=== PATIENT | male | born 1960 | race Caucasian/White ===

== ENCOUNTER 2018-06-11 12:37 | Inpatient (IN) ==
--- NOTE | 2018-06-11 13:02 | ED ---
HPI General Chief complaint: Chest Pain Stated complaint: Cardiac Time Seen by Provider: 06/11/18 12:47 History of Present Illness HPI narrative: This is a 58-year-old male with a history of coronary artery disease, CABG, hypertension, COPD, occasional tobacco use who was sent by his primary care physician for evaluation of elevated heart rate. He reports that for 1 week he has had cough and congestion. He has been using his albuterol inhaler and nebulizer quite frequently. He reports over the past few days he has had some shortness of breath and lightheadedness. Occasional palpitations. He was seen by his primary care physician and reportedly sent here for atrial fibrillation with RVR. He denies any known history of atrial fibrillation. Per chart review he was admitted here in 2011 for paroxysmal atrial fibrillation. He also notes that he was diagnosed with a right leg DVT 3 months ago in [place] and he has been on Eliquis since then. He is denying any chest pain, fevers, chills, abdominal pain, nausea, vomiting. Related Data Home Medications Medication Instructions Recorded Confirmed albuterol sulfate 1.25 mg INHALATION Q4-6H PRN 06/11/18 06/11/18 albuterol sulfate [Ventolin HFA] 1 puff INHALATION Q4-6H PRN 06/11/18 06/11/18 atorvastatin 80 mg PO DAILY 06/11/18 06/11/18 ciprofloxacin HCl [Cipro] 500 mg PO BID 06/11/18 06/11/18 clopidogrel [Plavix] 75 mg PO DAILY 06/11/18 06/11/18 furosemide 40 mg PO DAILY 06/11/18 06/11/18 hydromorphone 8 mg PO TID 06/11/18 06/11/18 lisinopril 5 mg PO DAILY 06/11/18 06/11/18 metoprolol tartrate 25 mg PO BID 06/11/18 06/11/18 oxycodone 30 mg PO Q8HR PRN 06/11/18 06/11/18 Previous Rx's Medication Instructions Recorded apixaban [Eliquis] 5 mg PO BID #60 tab 06/11/18 aspirin 325 mg PO DAILY #30 tab 06/11/18 lisinopril 10 mg PO DAILY #30 tab 06/11/18 Allergies Allergy/AdvReac Type Severity Reaction Status Date / Time acetaminophen Allergy Severe Anaphylaxis Verified 06/11/18 12:54 protamine Allergy Severe Anaphylaxis Verified 06/11/18 12:54 Sulfa (Sulfonamide Allergy Intermediate Nausea/Vomi Verified 06/11/18 12:54 Antibiotics) ting fresh frozen plasma Allergy Severe Anaphylaxis Uncoded 06/11/18 12:54 Review of Systems ROS: all other systems reviewed are negative [facility] Medical History Medical History A-fib (Acute) CHF (congestive heart failure) (Acute) COPD (chronic obstructive pulmonary disease) (Acute) DVT (deep venous thrombosis) (Acute) Hypercholesteremia (Acute) Hypertension (Acute) Myocardial infarct (Acute) Surgical History Surgical History S/P CABG x 5 (Acute) Social History Social History Substance History: No History of Abuse Second Hand Smoke Exposure: No Smoking Status: Current every day smoker Tobacco Type: Cigarettes How Often Do You Have a Drink Containing Alcohol: Monthly or less Recent Travel in [facility] within the Last 8 Weeks: No Recent Out of Country Travel within the Last 8 Weeks: No Immunization History Tetanus Immunization: <5 Years Tetanus Immunization Year if Known: 2018 Exam Narrative Exam Narrative: GENERAL: Well-developed well-nourished male in no acute distress SKIN: Warm and dry. HEAD: Atraumatic. Normocephalic. EYES: Pupils equal and round. No scleral icterus. No injection or drainage. ENT: No nasal bleeding or discharge. Mucous membranes pink and moist. NECK: Trachea midline. No JVD. CARDIOVASCULAR: Irregular rate and rhythm. No murmur appreciated. RESPIRATORY: No accessory muscle use. Coarse breath sounds bilaterally. GASTROINTESTINAL: Abdomen soft, non-tender, nondistended. Hepatic and splenic margins not palpable. MUSCULOSKELETAL: No obvious deformities. No clubbing. No cyanosis. No edema. NEUROLOGICAL: Awake and alert. No obvious cranial nerve deficits. Motor grossly within normal limits. Normal speech. PSYCHIATRIC: Appropriate mood and affect; insight and judgment normal. Course Initial Documented Vital Signs Temperature 98 F 06/11/18 12:41 Pulse Rate 132 H 06/11/18 12:41 Respiratory Rate 20 06/11/18 12:41 Blood Pressure 112/58 L 06/11/18 12:41 Pulse Oximetry 98 06/11/18 12:41 Last Documented Vital Signs Temperature 98.6 F 06/12/18 04:00 Pulse Rate 80 06/12/18 06:00 Respiratory Rate 18 06/12/18 05:56 Blood Pressure 127/68 06/12/18 04:00 Pulse Oximetry 94 L 06/12/18 04:00 Medical Decision Making RAJAT Attestation RAJAT supervised visit: Yes Attestation: I, Dr. Griffin, have reviewed the advance practice practitioner's documentation and am in agreement, met with the patient face to face, made the diagnosis, and the medical decision making was done by me. *My assessment and Findings: [-Patient presented to emergency room for symptomatic bradycardia, was diagnosed with rapid A. fib, treated with diltiazem and admitted to medicine with diltiazem drip.] MDM Narrative Medical decision making narrative: 58-year-old male with recently diagnosed DVT , COPD, hypertension, coronary artery disease, presents with a cough for 1 week , shortness of breath and lightheadedness for a few days, sent here by his primary care physician for evaluation of elevated heart rate. He was placed on ECG monitor and pulse oximetry. Twelve-lead EKG was obtained revealing what appears to be atrial fibrillation with RVR, left bundle branch block. He does have a history of left bundle branch block. This was confirmed by previous EKG in 2012. Lab work, chest x-ray, CT pulmonary angiogram ordered. He was given a dose of diltiazem. Initially after the 20 mg bolus of diltiazem the heart rate improved to the 100 range however shortly afterwards it returned to the 120-130 range. Therefore he was started on a diltiazem drip. CTA is negative for pulmonary embolism. The patient will be admitted for further treatment. Medical Screen Exam Complete: Yes Emergency Medical Condition: Yes Differential Diagnosis Differential Diagnosis: Atrial fibrillation, COPD exacerbation, pulmonary embolism, pneumonia Lab Data Result diagrams: 06/12/18 04:28 06/12/18 04:28 Lab Results 06/11/18 06/11/18 06/11/18 Range/Units 13:20 13:20 13:20 WBC 6.5 (4.0-11.0) th/mm3 RBC 4.07 L (4.50-5.90) mil/mm3 Hgb 11.3 L (13.0-17.0) gm/dL Hct 34.0 L (39.0-51.0) % MCV 83.5 (80.0-100.0) fL MCH 27.8 (27.0-34.0) pg MCHC 33.3 (32.0-36.0) % RDW 17.8 H (11.6-17.2) % Plt Count 131 L (150-450) th/mm3 MPV 9.2 (7.0-11.0) fL Neut % (Auto) 66.1 (16.0-70.0) % Lymph % (Auto) 20.0 (9.0-44.0) % Duval % (Auto) 10.1 H (0.0-8.0) % Eos % (Auto) 3.3 (0.0-4.0) % Baso % (Auto) 0.5 (0.0-2.0) % Neut # (Auto) 4.3 (1.8-7.7) th/mm3 Lymph # (Auto) 1.3 (1.0-4.8) th/mm3 Duval # (Auto) 0.7 (0.0-0.9) th/mm3 Eos # (Auto) 0.2 (0.0-0.4) th/mm3 Baso # (Auto) 0.0 (0.0-0.2) th/mm3 WBC Differential . Differential Comment Auto diff final PT 11.5 (9.8-11.6) sec INR 1.1 Ratio APTT 26.0 (23.4-31.7) sec Sodium 138 (136-145) meq/L Potassium 3.6 (3.5-5.1) meq/L Chloride 103 (98-107) meq/L Carbon Dioxide 28.4 (21.0-32.0) meq/L Anion Gap 7 (5-15) meq/L BUN 20 H (7-18) mg/dL Creatinine 1.31 H (0.60-1.30) mg/dL Estimated GFR 56 L (>89) mL/min Random Glucose 139 H (74-106) mg/dL Calcium 7.7 L (8.5-10.1) mg/dL Magnesium 1.8 (1.5-2.5) mg/dL Total Bilirubin 0.3 (0.2-1.0) mg/dL AST 32 (15-37) U/L ALT 47 (12-78) U/L Alkaline Phosphatase 106 (45-117) U/L Total Creatine Kinase 142 (39-308) U/L CK-MB (CK-2) 3.5 (0.5-3.6) ng/mL Troponin I Less than 0.02 L (0.02-0.05) ng/mL Total Protein 7.9 (6.4-8.2) g/dL Albumin 3.0 L (3.4-5.0) g/dL 06/12/18 06/12/18 Range/Units 04:28 04:28 WBC 4.7 (4.0-11.0) th/mm3 RBC 3.92 L (4.50-5.90) mil/mm3 Hgb 10.5 L (13.0-17.0) gm/dL Hct 32.6 L (39.0-51.0) % MCV 83.2 (80.0-100.0) fL MCH 26.9 L (27.0-34.0) pg MCHC 32.3 (32.0-36.0) % RDW 17.6 H (11.6-17.2) % Plt Count 119 L (150-450) th/mm3 MPV 8.8 (7.0-11.0) fL Neut % (Auto) (16.0-70.0) % Lymph % (Auto) (9.0-44.0) % Duval % (Auto) (0.0-8.0) % Eos % (Auto) (0.0-4.0) % Baso % (Auto) (0.0-2.0) % Neut # (Auto) (1.8-7.7) th/mm3 Lymph # (Auto) (1.0-4.8) th/mm3 Duval # (Auto) (0.0-0.9) th/mm3 Eos # (Auto) (0.0-0.4) th/mm3 Baso # (Auto) (0.0-0.2) th/mm3 WBC Differential Differential Comment PT (9.8-11.6) sec INR Ratio APTT (23.4-31.7) sec Sodium 135 L (136-145) meq/L Potassium 4.0 (3.5-5.1) meq/L Chloride 101 (98-107) meq/L Carbon Dioxide 25.0 (21.0-32.0) meq/L Anion Gap 9 (5-15) meq/L BUN 25 H (7-18) mg/dL Creatinine 1.04 (0.60-1.30) mg/dL Estimated GFR 73 L (>89) mL/min Random Glucose 223 H (74-106) mg/dL Calcium 7.5 L (8.5-10.1) mg/dL Magnesium (1.5-2.5) mg/dL Total Bilirubin (0.2-1.0) mg/dL AST (15-37) U/L ALT (12-78) U/L Alkaline Phosphatase (45-117) U/L Total Creatine Kinase (39-308) U/L CK-MB (CK-2) (0.5-3.6) ng/mL Troponin I (0.02-0.05) ng/mL Total Protein (6.4-8.2) g/dL Albumin (3.4-5.0) g/dL Imaging Data Radiologist's impression: Chest CTA 06/11/18 12:57 CONCLUSION: 1. No pulmonary embolus. 2. Mosaic attenuation pattern seen in the upper lungs bilaterally secondary to either interstitial disease or surrounding air-trapping. 3. Evidence of granulomatous exposure. 4. Minimally prominent lymph nodes in the mediastinum and left axillary and left supraclavicular regions. These are nonspecific. These appear similar to a prior CT scan initial 2012. Chest X-Ray 06/11/18 12:57 CONCLUSION: Prominence of the interstitium. This is nonspecific. The patient is scheduled for CTA of the chest. Discharge Plan Discharge Disposition Patient Disposition: ED Admit(ED Internal Use Only) Discharge Condition Condition: Stable Discharge Order Discharge Orders: ED Use Only Admit Order (Routine); Ordered 06/11/18 Ordered By: Carlos Leung Discharge Details Diagnosis: Atrial fibrillation with RVR Physicians Team ED Provider: Salvador Griffin ED Midlevel Provider: Carlos Leung Primary Care Provider: Jose Elias Whatley Attending Provider: Denise Franz Other Providers: Link Silva Status ED Status: Left Department Discharge Information Discharge Date/Time: 06/11/18 19:08
--- NOTE | 2018-06-11 13:18 | XR ---
EXAM DATE: 06/11/2018 1:14 PM EST AGE/SEX: 58 years / Male INDICATIONS: Chest pain. CLINICAL DATA: This is the patient's initial encounter. Patient reports that signs and symptoms have been present for 1 day and indicates a pain score of 4/10. MEDICAL/SURGICAL HISTORY: Congestive heart failure. Hypertension. CABG. COMPARISON: [facility] – [place], CHEST SINGLE AP, 01/24/2013. . FINDINGS: The patient is status post sternotomy. The heart size is normal. There is minimal interstitial promin ence at the bases especially on the left. CONCLUSION: Prominence of the interstitium. This is nonspecific. The patient is scheduled for CTA of the chest. Electronically signed by: Tonio Lao MD 06/11/2018 1:16 PM EST
[2018-06-11 13:53] LABS: Baso % (Auto) 0.5 % (0.0-2.0); Eos # (Auto) 0.2 th/mm3 (0.0-0.4); Eos % (Auto) 3.3 % (0.0-4.0); Hemoglobin 11.3 gm/dL (13.0-17.0); Lymph # (Auto) 1.3 th/mm3 (1.0-4.8); Mean Corpuscular HGB Conc 33.3 % (32.0-36.0); Mean Corpuscular Hemoglobin 27.8 pg (27.0-34.0); Mean Corpuscular Volume 83.5 fL (80.0-100.0); Mean Platelet Volume 9.2 fL (7.0-11.0); Mono # (Auto) 0.7 th/mm3 (0.0-0.9); Mono % (Auto) 10.1 % (0.0-8.0); Neut # (Auto) 4.3 th/mm3 (1.8-7.7); Neut % (Auto) 66.1 % (16.0-70.0); Platelet Count 131 th/mm3 (150-450); Red Blood Count 4.07 mil/mm3 (4.50-5.90); Red Cell Distribution Width 17.8 % (11.6-17.2); White Blood Count 6.5 th/mm3 (4.0-11.0)
[2018-06-11] MEDS ORDERED: Sodium Chlor 0.9% Inj 500 ML IV.SIG SCH (14:00)
[2018-06-11 14:09] LABS: INR 1.1 Ratio; Prothrombin Time 11.5 sec (9.8-11.6)
[2018-06-11 14:13] LABS: Alanine Aminotransferase 47 U/L (12-78); Anion Gap 7 meq/L (5-15); Aspartate Aminotransferase 32 U/L (15-37); Blood Urea Nitrogen 20 mg/dL (7-18); Calcium 7.7 mg/dL (8.5-10.1); Carbon Dioxide 28.4 meq/L (21.0-32.0); Chloride 103 meq/L (98-107); Glomerular Filtration Rate 56 mL/min (>89); Glucose,Random 139 mg/dL (74-106); Magnesium 1.8 mg/dL (1.5-2.5); Potassium 3.6 meq/L (3.5-5.1); Sodium 138 meq/L (136-145)
[2018-06-11 14:17] LABS: Alkaline Phosphatase 106 U/L (45-117); Creatine Kinase 142 U/L (39-308); Total Protein 7.9 g/dL (6.4-8.2)
[2018-06-11 14:29] LABS: Creatine Kinase MB 3.5 ng/mL (0.5-3.6)
[2018-06-11] MEDS: dilTIAZem Inj 125 MG in Sodium Chlor 0.9% Inj 100 ML IV.CONT PRN (15:42)
--- NOTE | 2018-06-11 15:42 | CT ---
EXAM DATE: 06/11/2018 3:28 PM EST AGE/SEX: 58 years / Male INDICATIONS: Shortness of breath CLINICAL DATA: This is the patient's initial encounter. Patient reports that signs and symptoms have been present for 1 day and indicates a pain score of 7/10. MEDICAL/SURGICAL HISTORY: Chronic obstructive pulmonary disease. Deep venous thrombosis. Cardiova scular disease. Hypertension a-fib CABG. RADIATION DOSE: 17.09 CTDI (mGy) COMPARISON: [facility] – [place], CT PULMONARY ANGIOGRAM, 01/24/2013. . TECHNIQUE: Volumetric scanning was performed using a multi-row detector CT scanner during bolus infu eugenio of 72 ml Omnipaque 350 (iohexol) nonionic water-soluble contrast as a single exam dose. The roro a was post processed with a variety of visualization algorithms including full volume maximum intensi ty projection and sliding thin slab reformation. Using automated exposure control and adjustment of t he mA and/or kV according to patient size, radiation dose was kept as low as reasonably achievable to obtain optimal diagnostic quality images. DICOM format image data is available electronically for r eview and comparison. FINDINGS: Pulmonary Arteries: No filling defects are seen in the pulmonary arteries out to the subsegmental ve ssels. The left and right pulmonary arteries are normal in diameter. Lung: There are patchy areas of mosaic attenuation seen in the upper lungs bilaterally. This is like ly secondary to underlying interstitial disease or surrounding air trapping. There are calcified gran ulomas seen in the lateral right upper lung. There are some minimal linear density seen in the manager social work ior left lower lobe and the superior segment likely related to atelectasis or scarring. Effusion: None. Mediastinum: No evidence of mediastinal or hilar adenopathy. The patient is status post sternotomy. There is mildly prominent but not definitely pathologically enlarged lymph nodes seen in the precarin al, pretracheal, AP window, and subcarinal regions. These are nonspecific. Some minimally prominent l ymph nodes in the left axillary and supraclavicular region. The largest lymph node in this region geeta sures up to 1.8 cm. Other: Calcified granulomas are seen in the liver and spleen. CONCLUSION: 1. No pulmonary embolus. 2. Mosaic attenuation pattern seen in the upper lungs bilaterally secondary to either interstitial d isease or surrounding air-trapping. 3. Evidence of granulomatous exposure. 4. Minimally prominent lymph nodes in the mediastinum and left axillary and left supraclavicular reg ions. These are nonspecific. These appear similar to a prior CT scan initial 2012. Electronically signed by: Tonio Lao MD 06/11/2018 3:40 PM EST
--- NOTE | 2018-06-11 17:01 | P.HPFP ---
History of Present Illness Service: Family Medicine Inpatient Teaching Service Primary Care Physician: Jose Elias Whatley MD, R3 Chief Complaint: tachycardia History of Present Illness: This is a 58-year-old male with a history of coronary artery disease, TN, CABG and subsequent paroxysmal A-fib, hypertension, COPD, tobacco use, recent DVT on AC, who was sent by his primary care physician for evaluation of elevated heart rate. He reports that for 1 week he has had cough, congestion, runny nose, dyspnea. He has been using his albuterol inhaler and nebulizer more frequently as well as an OTC expectorant. He reports increased dyspnea, increased coughing , increased sputum production, and increased sputum purulence. He reports over the past few days he has occasional palpitations, which are gone since presenting to the ED and being treated with Diltiazem drip; he also reports improvement in his dyspnea since being treated with Diltiazem drip. Patient presented earlier today to his primary care physician for a routine 3 month check up with mild dyspnea and then was sent here for atrial fibrillation with RVR. Per chart review, he was admitted here in 2011 for paroxysmal atrial fibrillation. He also notes that he was diagnosed with a right leg DVT 3 months ago in [place] and he has been on Eliquis since then. He recently drove back from [place], [place] a couple days ago. He reports that his LE swelling and back pain are worse as a result. He is denying any chest pain, fevers, chills, night sweats, weight loss, abdominal pain, nausea, vomiting, lightheadedness, dizziness, presyncope, syncope. He says he felt warm at times over the past week. He reports some abdominal pain 2/2 coughing. Chronic pain is stable, well controlled with meds as listed. Patient's heel scorer is Dr. Gonzalez. Patient had a 5 vessel CABG performed by Dr. Jimenez 9 years ago. - Diagnosis (1) Atrial fibrillation with RVR (2) COPD exacerbation (3) CHF (congestive heart failure) (4) History of DVT (deep vein thrombosis) (5) History of coronary artery bypass graft (6) HTN (hypertension) (7) Chronic pain Inpatient Certification: I certify that the inpatient services were ordered in accordance with Medicare regulations governing the order. This includes certification that hospital inpatient services are reasonable and necessary and in the case of services not specified as inpatient-only under 42 CFR 419.22(n), that they are appropriately provided as inpatient services in accordance to with the 2-midnight benchmark under 43 CFR 412.3(e) Review of Systems Denies fever or chills No polyuria, polydipsia Denies vision changes, eye pain, hearing changes, reports + rhinorrhea, no sore throat Denies sore throat, reports + runny nose, + cough No chest pain, palpitations, shortness of breath at this time reports + abdominal pain 2/2 coughing Denies constipation, diarrhea, nausea, vomiting, black or bloody stools No dysuria, hematuria Denies muscle/joint pain, weakness, headache No rashes, itching PMFSH - History History Provided By: Patient - Medical History Medical History: Medical History (Last Updated 06/11/18 @ 14:28 by Ariadna Crespo) A-fib CHF (congestive heart failure) COPD (chronic obstructive pulmonary disease) DVT (deep venous thrombosis) Hypercholesteremia Hypertension Myocardial infarct - Surgical History Surgical History: Surgical History (Last Updated 06/11/18 @ 12:55 by Ariadna Crespo) S/P CABG x 5 - Tobacco History Second Hand Smoke Exposure: No Tobacco Use In Past 30 Days: Yes Smoking Status: Current every day smoker Tobacco Type: Cigarettes - Alcohol History How Often Do You Have a Drink Containing Alcohol: Monthly or less - Substance Use History Substance History: No History of Abuse - Travel History Recent Travel in the [place] Within the Last 8 Weeks: No Recent Travel Out of the Country Within the Last 8 Weeks: No - Immunization History Tetanus Immunization: <5 Years Tetanus Immunization Year if Known: 2018 Medications and Allergies Active Medications: Active Medications Diltiazem HCl 125 mg/ Sodium (Chloride) 125 mls @ 5 mls/hr IV.CONT TITRATE PRN ; Protocol PRN Reason: Per Protocol Last Admin: 06/11/18 15:42 Dose: 5 mg/hr, 5 mls/hr Sodium Chloride (Ns Flush) 2 ml IV.FLUSH UNSCH PRN PRN Reason: FLUSH AFTER USING IV ACCESS Allergies Allergy/AdvReac Type Severity Reaction Status Date / Time acetaminophen Allergy Severe Anaphylaxis Verified 06/11/18 12:54 protamine Allergy Severe Anaphylaxis Verified 06/11/18 12:54 Sulfa (Sulfonamide Allergy Intermediate Nausea/Vomi Verified 06/11/18 12:54 Antibiotics) ting fresh frozen plasma Allergy Severe Anaphylaxis Uncoded 06/11/18 12:54 Home Medications Medication Instructions Recorded Confirmed Type albuterol sulfate 1.25 mg INHALATION Q4-6H PRN 06/11/18 06/11/18 History albuterol sulfate [Ventolin HFA] 1 puff INHALATION Q4-6H PRN 06/11/18 06/11/18 History atorvastatin 80 mg PO DAILY 06/11/18 06/11/18 History ciprofloxacin HCl [Cipro] 500 mg PO BID 06/11/18 06/11/18 History clopidogrel [Plavix] 75 mg PO DAILY 06/11/18 06/11/18 History furosemide 40 mg PO DAILY 06/11/18 06/11/18 History hydromorphone 8 mg PO TID 06/11/18 06/11/18 History metoprolol tartrate 25 mg PO BID 06/11/18 06/11/18 History oxycodone 30 mg PO Q8HR PRN 06/11/18 06/11/18 History Exam Vital signs: Vital Signs 06/11/18 12:41 06/11/18 12:56 06/11/18 13:29 Temperature 98 F Pulse Rate 132 H 139 H 135 H Respiratory Rate 20 19 20 Blood Pressure 112/58 L 152/94 H 96/55 L Pulse Oximetry 98 98 97 06/11/18 13:55 06/11/18 13:58 06/11/18 14:10 Temperature Pulse Rate 120 H 105 H 98 H Respiratory Rate 20 18 Blood Pressure 120/55 L 113/55 L 102/50 L Pulse Oximetry 97 97 Intake & Output 06/10/18 06/11/18 06/11/18 18:59 06:59 18:59 Intake Total 500 / 500 Balance 500 / 500 Weight 103.419 kg Intake: IV 500 / 500 NS Inj 500 ML @ 1000 mls/hr IV. 500 / 500 SIG BOLUS [facility] Rx#:[id number] Narrative: GENERAL: Well-developed well-nourished male in no acute distress SKIN: Warm and dry. HEAD: Atraumatic. Normocephalic. EYES: Pupils equal and round. No scleral icterus. No injection or drainage. ENT: No nasal bleeding or discharge. Mucous membranes pink and moist. NECK: Trachea midline. No JVD. No carotid bruits. CARDIOVASCULAR: Borderline tachycardic rate and irregularly irregular rhythm. RESPIRATORY: No accessory muscle use or increased work of breathing. Decreased air movement at bilateral lung bases with bilateral bibasilar crackles. Increased air movement and less rales with auscultating up the lung galvan bilaterally. GASTROINTESTINAL: Abdomen soft, non-tender, nondistended. Hepatic and splenic margins not palpable. MUSCULOSKELETAL: +2 pitting edema to knees bilaterally. No obvious deformities. No clubbing. No cyanosis. No calf tenderness bilaterally. NEUROLOGICAL: Awake and alert. No obvious cranial nerve deficits. Motor grossly within normal limits. Normal speech. PSYCHIATRIC: Appropriate mood and affect; insight and judgment normal. Results - Labs Result diagrams: 06/12/18 04:28 06/12/18 04:28 Abnormal lab results 06/11/18 06/11/18 Range/Units 13:20 13:20 RBC 4.07 L (4.50-5.90) mil/mm3 Hgb 11.3 L (13.0-17.0) gm/dL Hct 34.0 L (39.0-51.0) % RDW 17.8 H (11.6-17.2) % Plt Count 131 L (150-450) th/mm3 [place] % (Auto) 10.1 H (0.0-8.0) % BUN 20 H (7-18) mg/dL Creatinine 1.31 H (0.60-1.30) mg/dL Estimated GFR 56 L (>89) mL/min Random Glucose 139 H (74-106) mg/dL Calcium 7.7 L (8.5-10.1) mg/dL Troponin I Less than 0.02 L (0.02-0.05) ng/mL Albumin 3.0 L (3.4-5.0) g/dL Short CBC 06/11/18 Range/Units 13:20 WBC 6.5 (4.0-11.0) th/mm3 Hgb 11.3 L (13.0-17.0) gm/dL Hct 34.0 L (39.0-51.0) % Plt Count 131 L (150-450) th/mm3 BMP 06/11/18 13:20 Sodium 138 Potassium 3.6 Chloride 103 Carbon Dioxide 28.4 BUN 20 H Creatinine 1.31 H Calcium 7.7 L Cardiac Enzymes 06/11/18 Range/Units 13:20 Total Creatine Kinase 142 (39-308) U/L CK-MB (CK-2) 3.5 (0.5-3.6) ng/mL Troponin I Less than 0.02 L (0.02-0.05) ng/mL Liver Function 06/11/18 Range/Units 13:20 Total Bilirubin 0.3 (0.2-1.0) mg/dL AST 32 (15-37) U/L ALT 47 (12-78) U/L Alkaline Phosphatase 106 (45-117) U/L Albumin 3.0 L (3.4-5.0) g/dL - Imaging Impressions Chest CTA 06/11/18 12:57 CONCLUSION: 1. No pulmonary embolus. 2. Mosaic attenuation pattern seen in the upper lungs bilaterally secondary to either interstitial disease or surrounding air-trapping. 3. Evidence of granulomatous exposure. 4. Minimally prominent lymph nodes in the mediastinum and left axillary and left supraclavicular regions. These are nonspecific. These appear similar to a prior CT scan initial 2012. Chest X-Ray 06/11/18 12:57 CONCLUSION: Prominence of the interstitium. This is nonspecific. The patient is scheduled for CTA of the chest. Caprini VTE Risk Assessment Caprini VTE Risk Assessment: Moderate/High Risk (score >= 2) Caprini Risk Assessment Model: Point Value = 1 Point Value = 2 Point Value = 3 Point Value = 5 Age 41-60 Minor surgery BMI > 25 kg/m2 Swollen legs Varicose veins or History of unexplained or recurrent spontaneous Oral contraceptives or hormone replacement Sepsis (< 1 month) Serious lung disease, including pneumonia (< 1 month) Abnormal pulmonary function Acute myocardial infarction Congestive heart failure (< 1 month) History of inflammatory bowel disease Medical patient at bed rest Age 61-74 Arthroscopic surgery Major open surgery (> 45 min) Laparoscopic surgery (> 45 min) Malignancy Confined to bed (> 72 hours) Immobilizing plaster cast Central venous access Age >= 75 History of VTE Family history of VTE Factor V Leiden Prothrombin [id number] Lupus anticoagulant Anticardiolipin antibodies Elevated serum homocysteine Heparin-induced thrombocytopenia Other congenital or acquired thrombophilia Stroke (< 1 month) Elective arthroplasty Hip, pelvis, or leg fracture Acute spinal cord injury (< 1 month) Prophylaxis Regimen: Total Risk Factor Score Risk Level Prophylaxis Regimen 0-1 Low Early ambulation 2 Moderate Order ONE of the following: *Sequential Compression Device (SCD) *Heparin 5000 units SQ BID 3-4 Higher Order ONE of the following medications: *Heparin 5000 units SQ TID *Enoxaparin/Lovenox 40 mg SQ daily (WT < 150 kg, CrCl > 30 mL/min) *Enoxaparin/Lovenox 30 mg SQ daily (WT < 150 kg, CrCl > 10-29 mL/min) *Enoxaparin/Lovenox 30 mg SQ BID (WT < 150 kg, CrCl > 30 mL/min) AND/OR *Sequential Compression Device (SCD) 5 or more Highest Order ONE of the following medications: *Heparin 5000 units SQ TID (Preferred with Epidurals) *Enoxaparin/Lovenox 40 mg SQ daily (WT < 150 kg, CrCl > 30 mL/min) *Enoxaparin/Lovenox 30 mg SQ daily (WT < 150 kg, CrCl > 10-29 mL/min) *Enoxaparin/Lovenox 30 mg SQ BID (WT < 150 kg, CrCl > 30 mL/min) AND *Sequential Compression Device (SCD) Assessment and Plan - Assessment (1) Atrial fibrillation with RVR Code(s): I48.91 - Unspecified atrial fibrillation Status: Acute Plan: Patient given a bolus of Dilt in ED, which brought rate down temporarily but then rate jumped back up. Thus, patient started on Dilt drip. -continue Dilt drip -monitor VS q4h and with cont telemetry -O2 PRN -continue home medication of metop if bp can tolerate -cardiology consult (2) COPD exacerbation Code(s): J44.1 - Chronic obstructive pulmonary disease with (acute) exacerbation Status: Acute Plan: Patient with 3/3 cardinal symptoms of COPD exacerbation. Thus, will treat with steroid and abx. -Levaquin 750 mg IV q24h -Solumedrol 60 mg IV q6h overnight, then switch to prednisone 40 mg po qd -albuterol and DuoNebs PRN -COPD educator consulted patient is a smoker -nicotine patch (3) CHF (congestive heart failure) Code(s): I50.9 - Heart failure, unspecified Status: Acute Plan: -Patient with rales and LE edema on exam. -Lasix 40mg IV bid -KCl 10 mEq po bid -monitor I&Os, daily weights (4) History of DVT (deep vein thrombosis) Code(s): Z86.718 - Personal history of other venous thrombosis and embolism Status: Acute Plan: Patient recently diagnosed with DVT now on Eliquis. -continue home medication of Eliquis 5mg po bid for DVT ppx (5) History of coronary artery bypass graft Code(s): Z95.1 - Presence of aortocoronary bypass graft Status: Acute Plan: -continue home medications of aspirin, statin, Plavix -cardiac diet (6) HTN (hypertension) Code(s): I10 - Essential (primary) hypertension Status: Acute Plan: -continue home medications of lisinopril, metoprolol, furosemide as bp tolerates (7) Chronic pain Code(s): G89.29 - Other chronic pain Status: Acute Plan: chronic back pain -continue home medications of hydromorphone 8 mg po q8h, oxycodone 30 mg po q8h - Assessment and Plan This is a 58-year-old male with a history of coronary artery disease, TN, CABG and subsequent paroxysmal A-fib, hypertension, COPD, tobacco use, recent DVT on AC, who was sent by his primary care physician for evaluation of elevated heart rate. Patient was found to be in A. fib with RVR, which required diltiazem IV drip. Patient also presents with history concerning for COPD exacerbation. Will treat with antibiotics and steroids. Patient also with history of CHF seems volume overloaded on exam. Will treat with IV diuretics. Discussed Condition With: Dr. Franz
[2018-06-11] MEDS: MethylPREDNISolone Sod Succinate Inj 40 MG/ML Vial IV.PUSH SCH ×2 (18:25→23:30)
[2018-06-11] MEDS: Metoprolol Tartrate 25 MG Tablet PO SCH (20:04)
--- NOTE | 2018-06-11 22:25 | MB ---
cc: Link Silva MD DATE: 06/11/2018 HISTORY OF PRESENT ILLNESS: Roger is a very pleasant 58-year-old gentleman with history of DVT, coronary artery disease, status post CABG x5, Afib, CHF, sent over from his primary doctor due to complaints of dyspnea, which he describes as mild. He otherwise denies any chest pain, fever, chills, cough, GI or bleeding. No orthopnea or dizziness. Per the ER note, he was actually sent over for evaluation of elevated heart rate. PAST MEDICAL HISTORY: Per history of present illness. He also has a history of CHF, COPD, hyperlipidemia, myocardial infarction. ALLERGIES: ACETAMINOPHEN, PROTAMINE, SULFA, AND FRESH FROZEN PLASMA. SOCIAL HISTORY: Smokes cigarettes every day. Rarely drinks alcohol. MEDICATIONS: 1. Albuterol. 2. Eliquis 5 mg b.i.d. 3. Aspirin 325 daily. 4. Atorvastatin 80 mg at bedtime. 5. Clopidogrel 75 mg daily. 6. Cardizem drip. 7. Furosemide 40 mg IV b.i.d. 8. Dilaudid 8 mg q.8 hours. 9. Levaquin. 10. Lisinopril 10 mg daily. 11. Methylprednisolone 60 mg IV every 6 hours. 12. Metoprolol 25 mg p.o. b.i.d. 13. Nicotine patch. 14. Potassium chloride 10 mEq b.i.d. PHYSICAL EXAMINATION: VITAL SIGNS: Initially, blood pressure was 120/55 with a pulse of 120, respiratory rate 20, saturations 97% on room air. Heart rate is low as 98. Most recent heart rate is 114 with a blood pressure 105/60. GENERAL: He is alert and oriented x3, in no acute distress. NECK: Supple. No JVD. No bruit. CARDIOVASCULAR: S1, S2. No murmurs, rubs or gallops. ABDOMEN: Soft, nontender, nondistended with positive bowel sounds. EXTREMITIES: No extremity edema. LABORATORY DATA: White count 6.5, hemoglobin 11.3, hematocrit 34.0, platelet count 131. INR 1.1. Sodium 138, potassium 3.6, chloride 103, bicarbonate 20.4, BUN 20, creatinine 1.31, AST 32, ALT 47. Troponin less than 0.02. CT of the chest, no pulmonary embolus. Mosaic attenuation pattern seen in the upper lungs bilaterally secondary to either interstitial disease or surrounding air trapping, evidence of granulomatous exposure, minimally prominent lymph nodes in the mid mediastinum, left subclavian and supraclavicular regions. These are nonspecific. These appear similar to a prior CT scan, initial 2012. Chest x-ray, prominence of the interstitial and this is nonspecific. The patient is scheduled for CT of the chest. EKG: AFib at a rate of 109 beats per minute with left bundle branch block. DIAGNOSES: 1. Atrial fibrillation with rapid ventricular response. 2. Left ventricular hypertrophy. 3. Coronary artery disease. 4. Dyspnea. 5. Chronic renal insufficiency. 6. Acute renal failure. 7. Anemia. 8. Thrombocytopenia. PLAN: The patient is nearly rate controlled with IV Cardizem. The patient presented already on Eliquis, aspirin and Plavix. I am not clear why the patient is on a full 325 mg aspirin and Plavix in addition to Eliquis. By guidelines, the patient should be on 81 mg of aspirin daily for his CABG and Eliquis for his atrial fibrillation given his CHADS-VASc score of at least 3. He also has thrombocytopenia. I am somewhat concerned about decreasing his Plavix without knowing the exact reason why he was place on it as an outpatient. I strongly advised the patient to stop smoking. We will follow trends in the heart rate, blood pressure and troponin. Unless there is a strong reason why the patient is on a full aspirin and Plavix, I would recommend that the aspirin be reduced to 81 mg a day and the Plavix discontinued and continue Eliquis, again for his CHADS-VASc score of at least 3 and atrial fibrillation. MD MÓNICA Bagley/coni , 07:12 PM , 07:22 PM
[2018-06-12 04:40] LABS: Hematocrit 32.6 % (39.0-51.0); Hemoglobin 10.5 gm/dL (13.0-17.0); Mean Corpuscular HGB Conc 32.3 % (32.0-36.0); Mean Corpuscular Hemoglobin 26.9 pg (27.0-34.0); Mean Corpuscular Volume 83.2 fL (80.0-100.0); Mean Platelet Volume 8.8 fL (7.0-11.0); Platelet Count 119 th/mm3 (150-450); Red Blood Count 3.92 mil/mm3 (4.50-5.90); Red Cell Distribution Width 17.6 % (11.6-17.2); White Blood Count 4.7 th/mm3 (4.0-11.0)
[2018-06-12 04:52] LABS: Calcium 7.5 mg/dL (8.5-10.1)
[2018-06-12] MEDS: MethylPREDNISolone Sod Succinate Inj 40 MG/ML Vial IV.PUSH SCH (05:41)
[2018-06-12] MEDS: dilTIAZem Inj 125 MG in Sodium Chlor 0.9% Inj 100 ML IV.CONT PRN (08:26)
--- NOTE | 2018-06-12 08:45 | P.PNFP ---
Results - Labs Result diagrams: 06/12/18 04:28 06/12/18 04:28 Abnormal lab results 06/11/18 06/11/18 06/12/18 Range/Units 13:20 13:20 04:28 RBC 4.07 L 3.92 L (4.50-5.90) mil/mm3 Hgb 11.3 L 10.5 L (13.0-17.0) gm/dL Hct 34.0 L 32.6 L (39.0-51.0) % MCH 26.9 L (27.0-34.0) pg RDW 17.8 H 17.6 H (11.6-17.2) % Plt Count 131 L 119 L (150-450) th/mm3 [place] % (Auto) 10.1 H (0.0-8.0) % Sodium (136-145) meq/L BUN 20 H (7-18) mg/dL Creatinine 1.31 H (0.60-1.30) mg/dL Estimated GFR 56 L (>89) mL/min Random Glucose 139 H (74-106) mg/dL Calcium 7.7 L (8.5-10.1) mg/dL Troponin I Less than 0.02 L (0.02-0.05) ng/mL Albumin 3.0 L (3.4-5.0) g/dL 06/12/18 Range/Units 04:28 RBC (4.50-5.90) mil/mm3 Hgb (13.0-17.0) gm/dL Hct (39.0-51.0) % MCH (27.0-34.0) pg RDW (11.6-17.2) % Plt Count (150-450) th/mm3 [place] % (Auto) (0.0-8.0) % Sodium 135 L (136-145) meq/L BUN 25 H (7-18) mg/dL Creatinine (0.60-1.30) mg/dL Estimated GFR 73 L (>89) mL/min Random Glucose 223 H (74-106) mg/dL Calcium 7.5 L (8.5-10.1) mg/dL Troponin I (0.02-0.05) ng/mL Albumin (3.4-5.0) g/dL Short CBC 06/11/18 06/12/18 Range/Units 13:20 04:28 WBC 6.5 4.7 (4.0-11.0) th/mm3 Hgb 11.3 L 10.5 L (13.0-17.0) gm/dL Hct 34.0 L 32.6 L (39.0-51.0) % Plt Count 131 L 119 L (150-450) th/mm3 BMP 06/11/18 06/12/18 13:20 04:28 Sodium 138 135 L Potassium 3.6 4.0 Chloride 103 101 Carbon Dioxide 28.4 25.0 BUN 20 H 25 H Creatinine 1.31 H 1.04 Calcium 7.7 L 7.5 L Cardiac Enzymes 06/11/18 Range/Units 13:20 Total Creatine Kinase 142 (39-308) U/L CK-MB (CK-2) 3.5 (0.5-3.6) ng/mL Troponin I Less than 0.02 L (0.02-0.05) ng/mL Liver Function 06/11/18 Range/Units 13:20 Total Bilirubin 0.3 (0.2-1.0) mg/dL AST 32 (15-37) U/L ALT 47 (12-78) U/L Alkaline Phosphatase 106 (45-117) U/L Albumin 3.0 L (3.4-5.0) g/dL - Imaging Impressions Chest CTA 06/11/18 12:57 CONCLUSION: 1. No pulmonary embolus. 2. Mosaic attenuation pattern seen in the upper lungs bilaterally secondary to either interstitial disease or surrounding air-trapping. 3. Evidence of granulomatous exposure. 4. Minimally prominent lymph nodes in the mediastinum and left axillary and left supraclavicular regions. These are nonspecific. These appear similar to a prior CT scan initial 2012. Chest X-Ray 06/11/18 12:57 CONCLUSION: Prominence of the interstitium. This is nonspecific. The patient is scheduled for CTA of the chest. Physical Exam Vital signs: Vital Signs 06/11/18 12:41 06/11/18 12:56 06/11/18 13:29 Temperature 98 F Pulse Rate 132 H 139 H 135 H Respiratory Rate 20 19 20 Blood Pressure 112/58 L 152/94 H 96/55 L Pulse Oximetry 98 98 97 06/11/18 13:55 06/11/18 13:58 06/11/18 14:10 Temperature Pulse Rate 120 H 105 H 98 H Respiratory Rate 20 18 Blood Pressure 120/55 L 113/55 L 102/50 L Pulse Oximetry 97 97 06/11/18 17:07 06/11/18 18:32 06/11/18 19:15 Temperature Pulse Rate 110 H 114 H 103 H Respiratory Rate 18 Blood Pressure 111/59 L 105/60 Pulse Oximetry 06/11/18 19:29 06/11/18 19:34 06/11/18 20:00 Temperature 98.8 F Pulse Rate 109 H 122 H Respiratory Rate 16 18 Blood Pressure 125/66 Pulse Oximetry 96 96 06/11/18 21:00 06/11/18 22:00 06/11/18 22:06 Temperature Pulse Rate 118 H 126 H 103 H Respiratory Rate 20 Blood Pressure Pulse Oximetry 06/11/18 23:00 06/12/18 00:00 06/12/18 00:11 Temperature 98.6 F Pulse Rate 120 H 92 H 88 Respiratory Rate 18 18 Blood Pressure 128/60 Pulse Oximetry 95 06/12/18 01:00 06/12/18 02:00 06/12/18 03:00 Temperature Pulse Rate 74 74 68 Respiratory Rate Blood Pressure Pulse Oximetry 06/12/18 03:11 06/12/18 04:00 06/12/18 05:00 Temperature 98.6 F Pulse Rate 88 70 92 H Respiratory Rate 18 18 Blood Pressure 127/68 Pulse Oximetry 94 L 06/12/18 05:56 06/12/18 06:00 06/12/18 07:00 Temperature Pulse Rate 87 80 91 H Respiratory Rate 18 Blood Pressure Pulse Oximetry 06/12/18 07:58 06/12/18 08:00 06/12/18 08:19 Temperature 98.8 F Pulse Rate 85 92 H 93 H Respiratory Rate 18 18 Blood Pressure 134/63 Pulse Oximetry 95 95 96 Intake & Output 06/11/18 06/12/18 06/12/18 18:59 06:59 18:59 Intake Total 500 / 500 985 / 985 Balance 500 / 500 985 / 985 Weight 103.419 kg 106 kg Intake: IV 500 / 500 265 / 265 10 Cardizem Inj 125 MG In NS Inj 115 / 115 10 100 ML @ 5 MG/HR 5 mls/hr IV. CONT TITRATE PRN Rx#:[id number] Levaquin 750 mg Premix Inj 150 150 / 150 ML @ 100 mls/hr IV.SIG Q24H [facility] Rx#:[id number] NS Inj 500 ML @ 1000 mls/hr IV. 500 / 500 SIG BOLUS [facility] Rx#:[id number] Oral 720 / 720 Other: # Voids 3 Assessment and Plan - Assessment (1) Atrial fibrillation with RVR Code(s): I48.91 - Unspecified atrial fibrillation Status: Acute Plan: Patient given a bolus of Dilt in ED, which brought rate down temporarily but then rate jumped back up. Thus, patient started on Dilt drip. -continue Dilt drip -monitor VS q4h and with cont telemetry -O2 PRN -continue home medication of metop if bp can tolerate -cardiology consult (2) COPD exacerbation Code(s): J44.1 - Chronic obstructive pulmonary disease with (acute) exacerbation Status: Acute Plan: Patient with 3/3 cardinal symptoms of COPD exacerbation. Thus, will treat with steroid and abx. -Levaquin 750 mg IV q24h -Solumedrol 60 mg IV q6h overnight, then switch to prednisone 40 mg po qd -albuterol and DuoNebs PRN -COPD educator consulted patient is a smoker -nicotine patch (3) CHF (congestive heart failure) Code(s): I50.9 - Heart failure, unspecified Status: Acute Plan: -Patient with rales and LE edema on exam. -Lasix 40mg IV bid -KCl 10 mEq po bid -monitor I&Os, daily weights (4) History of DVT (deep vein thrombosis) Code(s): Z86.718 - Personal history of other venous thrombosis and embolism Status: Acute Plan: Patient recently diagnosed with DVT now on Eliquis. -continue home medication of Eliquis 5mg po bid for DVT ppx (5) History of coronary artery bypass graft Code(s): Z95.1 - Presence of aortocoronary bypass graft Status: Acute Plan: -continue home medications of aspirin, statin, Plavix -cardiac diet (6) HTN (hypertension) Code(s): I10 - Essential (primary) hypertension Status: Acute Plan: -continue home medications of lisinopril, metoprolol, furosemide as bp tolerates (7) Chronic pain Code(s): G89.29 - Other chronic pain Status: Acute Plan: chronic back pain -continue home medications of hydromorphone 8 mg po q8h, oxycodone 30 mg po q8h
[2018-06-12] MEDS ORDERED: Lisinopril 10 MG Tablet PO SCH (09:00)
[2018-06-12] MEDS ORDERED: predniSONE 20 MG Tablet PO SCH (09:00)
[2018-06-12] MEDS ORDERED: Aspirin 325 MG Tablet PO SCH (09:00)
--- NOTE | 2018-06-12 10:16 | P.PNFP ---
Subjective Interval history: Patient reports feeling well today. He denies any chest pain , palpitation, shortness of breath. Discussed plan of care with patient. <mAando Wang - 06/12/18 10:16> Results - Labs Result diagrams: 06/12/18 04:28 06/12/18 04:28 <Maria MDenise stevens Jocelyn - 06/15/18 11:30> Abnormal lab results 06/11/18 06/11/18 06/12/18 Range/Units 13:20 13:20 04:28 RBC 4.07 L 3.92 L (4.50-5.90) mil/mm3 Hgb 11.3 L 10.5 L (13.0-17.0) gm/dL Hct 34.0 L 32.6 L (39.0-51.0) % MCH 26.9 L (27.0-34.0) pg RDW 17.8 H 17.6 H (11.6-17.2) % Plt Count 131 L 119 L (150-450) th/mm3 [place] % (Auto) 10.1 H (0.0-8.0) % Sodium (136-145) meq/L BUN 20 H (7-18) mg/dL Creatinine 1.31 H (0.60-1.30) mg/dL Estimated GFR 56 L (>89) mL/min Random Glucose 139 H (74-106) mg/dL Calcium 7.7 L (8.5-10.1) mg/dL Troponin I Less than 0.02 L (0.02-0.05) ng/mL Albumin 3.0 L (3.4-5.0) g/dL 06/12/18 Range/Units 04:28 RBC (4.50-5.90) mil/mm3 Hgb (13.0-17.0) gm/dL Hct (39.0-51.0) % MCH (27.0-34.0) pg RDW (11.6-17.2) % Plt Count (150-450) th/mm3 [place] % (Auto) (0.0-8.0) % Sodium 135 L (136-145) meq/L BUN 25 H (7-18) mg/dL Creatinine (0.60-1.30) mg/dL Estimated GFR 73 L (>89) mL/min Random Glucose 223 H (74-106) mg/dL Calcium 7.5 L (8.5-10.1) mg/dL Troponin I (0.02-0.05) ng/mL Albumin (3.4-5.0) g/dL Short CBC 06/11/18 06/12/18 Range/Units 13:20 04:28 WBC 6.5 4.7 (4.0-11.0) th/mm3 Hgb 11.3 L 10.5 L (13.0-17.0) gm/dL Hct 34.0 L 32.6 L (39.0-51.0) % Plt Count 131 L 119 L (150-450) th/mm3 BMP 06/11/18 06/12/18 13:20 04:28 Sodium 138 135 L Potassium 3.6 4.0 Chloride 103 101 Carbon Dioxide 28.4 25.0 BUN 20 H 25 H Creatinine 1.31 H 1.04 Calcium 7.7 L 7.5 L Cardiac Enzymes 06/11/18 Range/Units 13:20 Total Creatine Kinase 142 (39-308) U/L CK-MB (CK-2) 3.5 (0.5-3.6) ng/mL Troponin I Less than 0.02 L (0.02-0.05) ng/mL Liver Function 06/11/18 Range/Units 13:20 Total Bilirubin 0.3 (0.2-1.0) mg/dL AST 32 (15-37) U/L ALT 47 (12-78) U/L Alkaline Phosphatase 106 (45-117) U/L Albumin 3.0 L (3.4-5.0) g/dL <Amando Wang - 06/12/18 10:16> - Imaging Impressions Chest CTA 06/11/18 12:57 CONCLUSION: 1. No pulmonary embolus. 2. Mosaic attenuation pattern seen in the upper lungs bilaterally secondary to either interstitial disease or surrounding air-trapping. 3. Evidence of granulomatous exposure. 4. Minimally prominent lymph nodes in the mediastinum and left axillary and left supraclavicular regions. These are nonspecific. These appear similar to a prior CT scan initial 2012. Chest X-Ray 06/11/18 12:57 CONCLUSION: Prominence of the interstitium. This is nonspecific. The patient is scheduled for CTA of the chest. <Amando Wang - 06/12/18 10:16> Physical Exam Vital signs: Vital Signs 06/11/18 12:41 06/11/18 12:56 06/11/18 13:29 Temperature 98 F Pulse Rate 132 H 139 H 135 H Respiratory Rate 20 19 20 Blood Pressure 112/58 L 152/94 H 96/55 L Pulse Oximetry 98 98 97 06/11/18 13:55 06/11/18 13:58 06/11/18 14:10 Temperature Pulse Rate 120 H 105 H 98 H Respiratory Rate 20 18 Blood Pressure 120/55 L 113/55 L 102/50 L Pulse Oximetry 97 97 06/11/18 17:07 06/11/18 18:32 06/11/18 19:15 Temperature Pulse Rate 110 H 114 H 103 H Respiratory Rate 18 Blood Pressure 111/59 L 105/60 Pulse Oximetry 06/11/18 19:29 06/11/18 19:34 06/11/18 20:00 Temperature 98.8 F Pulse Rate 109 H 122 H Respiratory Rate 16 18 Blood Pressure 125/66 Pulse Oximetry 96 96 06/11/18 21:00 06/11/18 22:00 06/11/18 22:06 Temperature Pulse Rate 118 H 126 H 103 H Respiratory Rate 20 Blood Pressure Pulse Oximetry 06/11/18 23:00 06/12/18 00:00 06/12/18 00:11 Temperature 98.6 F Pulse Rate 120 H 92 H 88 Respiratory Rate 18 18 Blood Pressure 128/60 Pulse Oximetry 95 06/12/18 01:00 06/12/18 02:00 06/12/18 03:00 Temperature Pulse Rate 74 74 68 Respiratory Rate Blood Pressure Pulse Oximetry 06/12/18 03:11 06/12/18 04:00 06/12/18 05:00 Temperature 98.6 F Pulse Rate 88 70 92 H Respiratory Rate 18 18 Blood Pressure 127/68 Pulse Oximetry 94 L 06/12/18 05:56 06/12/18 06:00 06/12/18 07:00 Temperature Pulse Rate 87 80 91 H Respiratory Rate 18 Blood Pressure Pulse Oximetry 06/12/18 07:58 06/12/18 08:00 06/12/18 08:19 Temperature 98.8 F Pulse Rate 85 92 H 93 H Respiratory Rate 18 18 Blood Pressure 134/63 Pulse Oximetry 95 95 96 Intake & Output 12/06/18 12/07/18 12/07/18 18:59 06:59 18:59 Intake Total 500 / 500 985 / 985 Balance 500 / 500 985 / 985 Weight 103.419 kg 106 kg Intake: IV 500 / 500 265 / 265 Cardizem Inj 125 MG In NS Inj 115 / 115 100 ML @ 5 MG/HR 5 mls/hr IV. CONT TITRATE PRN Rx#:[id number] Levaquin 750 mg Premix Inj 150 150 / 150 ML @ 100 mls/hr IV.SIG Q24H [facility] Rx#:[id number] NS Inj 500 ML @ 1000 mls/hr IV. 500 / 500 SIG BOLUS INNA Rx#:[id number] Oral 720 / 720 Other: # Voids 3 <FelipeAmando - 06/12/18 10:16> Narrative: GENERAL: Well-developed well-nourished male in no acute distress SKIN: Warm and dry. HEAD: Atraumatic. Normocephalic. EYES: Pupils equal and round. No scleral icterus. No injection or drainage. ENT: No nasal bleeding or discharge. Mucous membranes pink and moist. NECK: Trachea midline. No JVD. CARDIOVASCULAR: Borderline tachycardic rate and irregularly irregular rhythm. RESPIRATORY: No accessory muscle use or increased work of breathing. Significantly improved but still with decreased air movement at bilateral lung bases with bilateral bibasilar crackles. Increased air movement and less rales with auscultating up the lung galvan bilaterally. GASTROINTESTINAL: Abdomen soft, non-tender, nondistended. Hepatic and splenic margins not palpable. MUSCULOSKELETAL: +2 pitting edema to mid-pagan bilaterally. No obvious deformities. No clubbing. No cyanosis. No calf tenderness bilaterally. NEUROLOGICAL: Awake and alert. No obvious cranial nerve deficits. Motor grossly within normal limits. Normal speech. PSYCHIATRIC: Appropriate mood and affect; insight and judgment normal. <Amando Wang - 06/12/18 10:16> Assessment and Plan - Assessment (1) Atrial fibrillation with RVR Code(s): I48.91 - Unspecified atrial fibrillation Status: Acute (2) COPD exacerbation Code(s): J44.1 - Chronic obstructive pulmonary disease with (acute) exacerbation Status: Acute (3) CHF (congestive heart failure) Code(s): I50.9 - Heart failure, unspecified Status: Acute (4) History of DVT (deep vein thrombosis) Code(s): Z86.718 - Personal history of other venous thrombosis and embolism Status: Acute (5) History of coronary artery bypass graft Code(s): Z95.1 - Presence of aortocoronary bypass graft Status: Acute (6) HTN (hypertension) Code(s): I10 - Essential (primary) hypertension Status: Acute (7) Chronic pain Code(s): G89.29 - Other chronic pain Status: Acute <Denise Franz - 06/15/18 11:30> (1) Atrial fibrillation with RVR Code(s): I48.91 - Unspecified atrial fibrillation Status: Acute Plan: -Transition from diltiazem IV drip to diltiazem p.o. short acting today. Convert to long-acting tomorrow. -monitor VS q4h and with cont telemetry -O2 PRN -continue home medication of metoprolol if bp can tolerate -cardiology consult appreciated: -For CHADS-VASc score of at least 3, continue Eliquis indefinitely (2) COPD exacerbation Code(s): J44.1 - Chronic obstructive pulmonary disease with (acute) exacerbation Status: Acute Plan: -Levaquin 750 mg po q24h -prednisone 40 mg po qd -albuterol and DuoNebs PRN -COPD educator consulted patient is a smoker -nicotine patch (3) CHF (congestive heart failure) Code(s): I50.9 - Heart failure, unspecified Status: Acute Plan: Patient with decreased/improved rales and LE edema on exam. -Lasix 20mg po bid -KCl 10 mEq po bid -monitor I&Os, daily weights (4) History of DVT (deep vein thrombosis) Code(s): Z86.718 - Personal history of other venous thrombosis and embolism Status: Acute Plan: Patient recently diagnosed with DVT now on Eliquis. -continue home medication of Eliquis 5mg po bid for DVT ppx -For CHADS-VASc score of at least 3, continue Eliquis indefinitely (5) History of coronary artery bypass graft Code(s): Z95.1 - Presence of aortocoronary bypass graft Status: Acute Plan: -cardiology consult appreciated: -continue home medications highest intensity statin -Decrease aspirin dose from 325 mg p.o. daily to 81 mg p.o. daily -Stop Plavix -cardiac diet (6) HTN (hypertension) Code(s): I10 - Essential (primary) hypertension Status: Acute Plan: -continue home medications of lisinopril, metoprolol, furosemide as bp tolerates -may need to stop some of these home bp meds with the addition of diltiazem p.o. (7) Chronic pain Code(s): G89.29 - Other chronic pain Status: Acute Plan: chronic back pain -continue home medications of hydromorphone 8 mg po q8h, oxycodone 30 mg po q8h <Amando Wang - 06/12/18 10:03> - Assessment and Plan This is a 58-year-old male with a history of coronary artery disease, CT, CABG and subsequent paroxysmal A-fib, hypertension, COPD, tobacco use, recent DVT on AC, who was sent by his primary care physician for evaluation of elevated heart rate. Patient was found to be in A. fib with RVR, which required diltiazem IV drip; will transition to po starting today. Patient also presents with history concerning for COPD exacerbation. Will treat with antibiotics and steroids. Patient also with history of CHF seems volume overloaded on exam. Will treat with diuretics. <Amando Wang - 06/12/18 10:16> Discussed Condition With: Dr. Franz <Amando Wang - 06/12/18 10:16> Discharge Planning: Likely tomorrow after rate control with long-acting diltiazem p.o. <Amando Wang - 06/12/18 10:16> - Attending Attestation The exam, history, and the medical decision-making described in the above note were completed with the assistance of the resident physician. I reviewed and agree with the findings presented. I attest that I had a [id number] encounter with the patient on the same day, and personally performed and documented my assessment and findings in the medical record. He is doing well overall and has no more chest pain. Spoke to he and his and all their questions were answered. <Denise Franz - 06/15/18 11:30>
--- NOTE | 2018-06-12 10:54 | P.PNCA ---
Subjective Interval history: assymptomatic, wants to go home Medications and Allergies Active Medications: Active Medications Albuterol (Albuterol Neb (Jasmin)) 2.5 mg NEB Q2HR NEB [facility] Last Admin: 06/12/18 10:05 Dose: 2.5 mg Albuterol (Duoneb Neb (Prn)) 1 ampul NEB Q4HR NEB PRN PRN Reason: SHORTNESS OF BREATH/WHEEZING Apixaban (Eliquis) 5 mg PO BID [facility] Last Admin: 06/11/18 20:04 Dose: 5 mg Aspirin (Aspirin Chew) 81 mg PO DAILY [facility] Atorvastatin Calcium (Lipitor) 80 mg PO HS [facility] Last Admin: 06/11/18 20:05 Dose: 80 mg Diltiazem HCl (Cardizem) 45 mg PO QID [facility] Furosemide (Lasix) 20 mg PO BID@0900,1800 [facility] Hydromorphone HCl (Dilaudid) 8 mg PO Q8H [facility] Last Admin: 06/12/18 05:41 Dose: 8 mg Diltiazem HCl 125 mg/ Sodium (Chloride) 125 mls @ 5 mls/hr IV.CONT TITRATE PRN ; Protocol PRN Reason: Per Protocol Last Admin: 06/12/18 08:26 Dose: 5 mg/hr, 5 mls/hr Levofloxacin (Levaquin) 750 mg PO DAILY [facility] Lisinopril (Prinivil) 10 mg PO DAILY [facility] Metoprolol Tartrate (Lopressor) 25 mg PO BID [facility] Last Admin: 06/11/18 20:04 Dose: 25 mg Miscellaneous (Pill Splitter) 1 each OTHER UNSCH PRN PRN Reason: SEE LABEL COMMENTS Nicotine (Habitrol 21 Mg Patch.24 Hr) 1 patch T-DERMAL DAILY [facility] Last Admin: 06/11/18 18:25 Dose: 1 patch Oxycodone HCl (Roxicodone) 30 mg PO Q8H [facility] Last Admin: 06/12/18 03:49 Dose: 30 mg Potassium Chloride (Klor-Con 10) 10 meq PO BID [facility] Last Admin: 06/11/18 20:05 Dose: 10 meq Prednisone (Deltasone) 20 mg PO BID [facility] Sodium Chloride (Ns Flush) 2 ml IV.FLUSH PRN PRN PRN Reason: FLUSH AFTER USING IV ACCESS Sodium Chloride (Ns Flush) 2 ml IV.FLUSH BID [facility] Last Admin: 06/11/18 21:21 Dose: 2 ml Allergies Allergy/AdvReac Type Severity Reaction Status Date / Time acetaminophen Allergy Severe Anaphylaxis Verified 06/11/18 12:54 protamine Allergy Severe Anaphylaxis Verified 06/11/18 12:54 Sulfa (Sulfonamide Allergy Intermediate Nausea/Vomi Verified 06/11/18 12:54 Antibiotics) ting fresh frozen plasma Allergy Severe Anaphylaxis Uncoded 06/11/18 12:54 Home Medications Medication Instructions Recorded Confirmed Type albuterol sulfate 1.25 mg INHALATION Q4-6H PRN 06/11/18 06/11/18 History albuterol sulfate [Ventolin HFA] 1 puff INHALATION Q4-6H PRN 06/11/18 06/11/18 History atorvastatin 80 mg PO DAILY 06/11/18 06/11/18 History ciprofloxacin HCl [Cipro] 500 mg PO BID 06/11/18 06/11/18 History clopidogrel [Plavix] 75 mg PO DAILY 06/11/18 06/11/18 History furosemide 40 mg PO DAILY 06/11/18 06/11/18 History hydromorphone 8 mg PO TID 06/11/18 06/11/18 History metoprolol tartrate 25 mg PO BID 06/11/18 06/11/18 History oxycodone 30 mg PO Q8HR PRN 06/11/18 06/11/18 History Physical Exam Vital signs: Vital Signs 06/11/18 12:41 06/11/18 12:56 06/11/18 13:29 Temperature 98 F Pulse Rate 132 H 139 H 135 H Respiratory Rate 20 19 20 Blood Pressure 112/58 L 152/94 H 96/55 L Pulse Oximetry 98 98 97 06/11/18 13:55 06/11/18 13:58 06/11/18 14:10 Temperature Pulse Rate 120 H 105 H 98 H Respiratory Rate 20 18 Blood Pressure 120/55 L 113/55 L 102/50 L Pulse Oximetry 97 97 06/11/18 17:07 06/11/18 18:32 06/11/18 19:15 Temperature Pulse Rate 110 H 114 H 103 H Respiratory Rate 18 Blood Pressure 111/59 L 105/60 Pulse Oximetry 06/11/18 19:29 06/11/18 19:34 06/11/18 20:00 Temperature 98.8 F Pulse Rate 109 H 122 H Respiratory Rate 16 18 Blood Pressure 125/66 Pulse Oximetry 96 96 06/11/18 21:00 06/11/18 22:00 06/11/18 22:06 Temperature Pulse Rate 118 H 126 H 103 H Respiratory Rate 20 Blood Pressure Pulse Oximetry 06/11/18 23:00 06/12/18 00:00 06/12/18 00:11 Temperature 98.6 F Pulse Rate 120 H 92 H 88 Respiratory Rate 18 18 Blood Pressure 128/60 Pulse Oximetry 95 06/12/18 01:00 06/12/18 02:00 06/12/18 03:00 Temperature Pulse Rate 74 74 68 Respiratory Rate Blood Pressure Pulse Oximetry 06/12/18 03:11 06/12/18 04:00 06/12/18 05:00 Temperature 98.6 F Pulse Rate 88 70 92 H Respiratory Rate 18 18 Blood Pressure 127/68 Pulse Oximetry 94 L 06/12/18 05:56 06/12/18 06:00 06/12/18 07:00 Temperature Pulse Rate 87 80 91 H Respiratory Rate 18 Blood Pressure Pulse Oximetry 06/12/18 07:58 06/12/18 08:00 06/12/18 08:19 Temperature 98.8 F Pulse Rate 85 92 H 93 H Respiratory Rate 18 18 Blood Pressure 134/63 Pulse Oximetry 95 95 96 06/12/18 10:04 Temperature Pulse Rate 82 Respiratory Rate 18 Blood Pressure Pulse Oximetry Intake & Output 06/11/18 06/12/18 06/12/18 18:59 06:59 18:59 Intake Total 500 / 500 985 / 985 Balance 500 / 500 985 / 985 Weight 103.419 kg 106 kg Intake: IV 500 / 500 265 / 265 10 10 Cardizem Inj 125 MG In NS Inj 115 / 115 10 100 ML @ 5 MG/HR 5 mls/hr IV. CONT TITRATE PRN Rx#:[id number] Levaquin 750 mg Premix Inj 150 150 / 150 ML @ 100 mls/hr IV.SIG Q24H [facility] Rx#:[id number] NS Inj 500 ML @ 1000 mls/hr IV. 500 / 500 SIG BOLUS JASMIN Rx#:[id number] Oral 720 / 720 Other: # Voids 3 - Constitutional no acute distress - Routine HEENT Exam Head: Present: normocephalic - Routine Neck Exam Present: supple - Routine Respiratory Exam Present: CTA bilaterally - Routine Cardiovascular Exam Present: S1, S2 - Routine Abdominal Exam Present: soft - Routine Extremities Exam Comments: no sandeep Results 06/12/18 04:28 06/12/18 04:28 Cardiac Enzymes 06/11/18 Range/Units 13:20 AST 32 (15-37) U/L CK-MB (CK-2) 3.5 (0.5-3.6) ng/mL Troponin I Less than 0.02 L (0.02-0.05) ng/mL Coagulation 06/11/18 Range/Units 13:20 PT 11.5 (9.8-11.6) sec APTT 26.0 (23.4-31.7) sec CBC 06/11/18 06/12/18 Range/Units 13:20 04:28 WBC 6.5 4.7 (4.0-11.0) th/mm3 RBC 4.07 L 3.92 L (4.50-5.90) mil/mm3 Hgb 11.3 L 10.5 L (13.0-17.0) gm/dL Hct 34.0 L 32.6 L (39.0-51.0) % Plt Count 131 L 119 L (150-450) th/mm3 Neut # (Auto) 4.3 (1.8-7.7) th/mm3 Lymph # (Auto) 1.3 (1.0-4.8) th/mm3 [place] # (Auto) 0.7 (0.0-0.9) th/mm3 Eos # (Auto) 0.2 (0.0-0.4) th/mm3 Baso # (Auto) 0.0 (0.0-0.2) th/mm3 Comprehensive Metabolic Panel 06/11/18 06/12/18 Range/Units 13:20 04:28 Sodium 138 135 L (136-145) meq/L Potassium 3.6 4.0 (3.5-5.1) meq/L Chloride 103 101 (98-107) meq/L Carbon Dioxide 28.4 25.0 (21.0-32.0) meq/L BUN 20 H 25 H (7-18) mg/dL Creatinine 1.31 H 1.04 (0.60-1.30) mg/dL Calcium 7.7 L 7.5 L (8.5-10.1) mg/dL AST 32 (15-37) U/L ALT 47 (12-78) U/L Alkaline Phosphatase 106 (45-117) U/L Total Protein 7.9 (6.4-8.2) g/dL Albumin 3.0 L (3.4-5.0) g/dL Intake and Output 06/11/18 06/12/18 06/12/18 22:59 06:59 14:59 Intake Total 150 / 150 835 / 835 Balance 150 / 150 835 / 835 Intake: IV 150 / 150 115 / 115 10 10 Cardizem Inj 125 MG In NS Inj 115 / 115 10 / 10 100 ML @ 5 MG/HR 5 mls/hr IV. CONT TITRATE PRN Rx#:[id number] Levaquin 750 mg Premix Inj 150 150 / 150 ML @ 100 mls/hr IV.SIG Q24H [facility] Rx#:[id number] Oral 720 / 720 Other: # Voids 3 Weight 106 kg - Imaging and Cardiology Imaging: Impressions Chest CTA 06/11/18 12:57 CONCLUSION: 1. No pulmonary embolus. 2. Mosaic attenuation pattern seen in the upper lungs bilaterally secondary to either interstitial disease or surrounding air-trapping. 3. Evidence of granulomatous exposure. 4. Minimally prominent lymph nodes in the mediastinum and left axillary and left supraclavicular regions. These are nonspecific. These appear similar to a prior CT scan initial 2012. Chest X-Ray 06/11/18 12:57 CONCLUSION: Prominence of the interstitium. This is nonspecific. The patient is scheduled for CTA of the chest. Assessment and Plan - Assessment (1) Atrial fibrillation with RVR Code(s): I48.91 - Unspecified atrial fibrillation Status: Acute - Plan 1.) Afib - rate controlled on iv cardizem, ok to dc if remains rate controlled on po, continue eliquis, patient strongly advised to stop smoking and f/u with his pcp kieran
[2018-06-12] MEDS: Metoprolol Tartrate 25 MG Tablet PO SCH (11:15)
[2018-06-12] MEDS: dilTIAZem 30 MG Tablet PO SCH ×2 (11:15→16:11)
[2018-06-12] MEDS ORDERED: levoFLOXacin 750 MG Tablet PO SCH (13:00)
[2018-06-12 16:25] VITALS: BP 164/72; PULSE 97; RESP 20; TEMP 98; O2SAT 99
[2018-06-12] MEDS ORDERED: Furosemide 20 MG Tablet PO SCH (18:00)
--- NOTE | 2018-06-13 18:04 | ECG ---
Date Performed: 06/11/2018 Time Performed: 12:50:47 PTAGE: 58 years EKG: ATRIAL FIBRILLATION WITH RAPID VENTRICULAR RESPONSE LEFT BUNDLE BRANCH BLOCK ABNORMAL ECG PREVIOUS TRACING : 01/24/2013 17.31 DOCTOR: Liz Calhoun Interpretating Date/Time 06/13/2018 17:37:50
--- NOTE | 2018-06-17 14:10 | PQ ---
Physician Query Response Document PATIENT: Roger Enriquez : 1960 ADMIT DATE: 06/11/2018 4:25 PM DISCH DATE: 06/12/2018 5:30 PM RESPONDING PROVIDER #: JAYDA QUERY TEXT: Heart Failure Acuity and Type Congestive Heart Failure is documented in the Medical Record. Please document the type (if possible) and acuity (includes probable or suspected) Such as: Type: -- Combined systolic and diastolic (heart failure with reduced ejection fraction and diastolic) dysfu nction -- Diastolic (HFpEF) -- Systolic (HFrEF) -- Left heart failure -- Right heart failure -- Right heart failure due to left heart failure -- High output failure -- End stage heart failure -- Other, please specify Acuity: -- Acute -- Chronic -- Acute on chronic -- Other, please specify Also please document the underlying cause of the CHF (includes probable or suspected) If you have any additional questions/comments and/or concerns, please do not hesitate to reach out to the [facility]/Coding Hotline, Ext. [phone]. The patient's Clinical Indicators include: Patiemt with history of CHF. On furosemide at home. No echocardiogram done this admit, no ejection fraction documented. Patient admitted in atrial fibrillation. H Code(s): I50.9 - Heart failure, unspecified Status: Acute Plan: -Patient with rales and LE edema on exam. -Lasix 40mg IV bid -KCl 10 mEq po bid -monitor I Os, daily weights Will treat with antibiotics and steroids. Patient also with history of CHF seems volume overloaded on exam. Will treat with IV diuretics. [facility] did not review this account. Query created by: Haven Dey on 06/15/2018 2:17 PM RESPONSE TEXT: When a pt has an accelerated heart rate especially in a fib, the CHF can worsen. Based on these facto rs, he would have systolic heart failure that improved with his controlled rate. Electronically signed by: Denise Franz MD 06/17/2018 2:06 PM
== END 2018-06-12 17:30 | disposition home or self-care (01) ==
LOC: NEPC 12:37 → NEDA 16:25 → HCPC 19:03
PROVIDERS: ADMIT Family Medicine; ATTEND Family Medicine